=== PATIENT | male | born 1975 | race Caucasian/White ===

== ENCOUNTER 2019-01-26 16:06 | Emergency (ER) | payer OTHER ==
[~2019-01-26] VITALS: Ht 182.9 cm; Wt 113.4 kg
[~2019-01-26 16:06] MED LIST: METOPROLOL TART25 MG
== END 2019-01-26 20:13 | disposition home or self-care (01) ==
LOC: ER 16:06
DX: R42 Dizziness and giddiness (principal); R20.2 Paresthesia of skin; F06.4 Anxiety disorder due to known physiological condition